=== PATIENT | male | born 1995 | race Two or more races ===

== ENCOUNTER 2024-04-19 23:26 | Emergency (ER) | payer OTHER ==
[~2024-04-19] VITALS: Ht 182.9 cm; Wt 70.4 kg
[2024-04-20] MEDS: IBUPROFEN 600 MG TABLET PO ONE (01:07)
[2024-04-20 01:21] VITALS: BP 125/67; PULSE 72; RESP 16; TEMP 97.3
== END 2024-04-20 01:33 | disposition home or self-care (01) ==
LOC: EMS 23:29
DX: S62.511A Displaced fracture of proximal phalanx of right thumb, initial encounter for closed fracture (principal); Z91.010 Allergy to peanuts; X58.XXXA Exposure to other specified factors, initial encounter; Y93.68 Activity, volleyball (beach) (court); Y92.89 Other specified places as the place of occurrence of the external cause; Y99.8 Other external cause status
CPT/HCPCS: 99283